=== PATIENT | female | born 1960 | race Caucasian/White ===

== ENCOUNTER → 2021-02-06 | Outpatient (CLI) | payer BC ==
[~2021-02-06] MED LIST: ALEVE-D SINUS1 EACH PO; ATENOLOL50 MG PO; BENICAR40 MG PO; NEURONTIN300 MG PO; NP THYROID; NP THYROID60 MG PO; ULTRAM50 MG PO; VITAMIN D
[2021-02-06 12:03] LABS: HEMOGLOBIN 14.5 gm/dl (12.3-15.3); RED BLOOD COUNT 4.97 M/UL (4.00-5.10); WHITE BLOOD COUNT 6.3 K/UL (4.5-11.0)
== END ==
LOC: OPSV2 10:30 → EDSTATUS 10:30 → OPSV2 11:22
PROVIDERS: Orthopaedic Surgery
DX: Z01.818 Encounter for other preprocedural examination (principal); M16.12 Unilateral primary osteoarthritis, left hip
CPT/HCPCS: 36415; 71046; 80048; 81001; 85027; 85610; 85730; 87081; 93005